=== PATIENT | male | born 1970 | race Caucasian/White ===

== ENCOUNTER → 2017-01-09 | Outpatient (CLI) | payer BC ==
--- NOTE | 2017-01-09 13:02 | DI ---
Indication: ITS.REASON: HYPERCALCEMIA; HYPERPARATHYROIDISM; VIT D DEF; PROCEDURE: US THYROID: Encounter: Initial Comparison: Nuclear medicine parathyroid scan from 01/09/2017 Technique: Grayscale and color Doppler sonographic imaging of the thyroid gland was performed. Findings: Thyroid isthmus is normal measuring 0.2 cm in diameter. The right thyroid lobe shows a probable colloid cyst which is hypoechoic and contains a central coarse calcification measuring 0.5 x 0.3 x 0.7 cm in size. No additional nodules in the right lobe. Left thyroid lobe is homogeneous without focal nodule or mass. Normal Doppler flow to both thyroid lobes. Posterior to the inferior left thyroid lobe is an irregular hypoechoic nodule measuring 1.1 x 0.8 x 0.7 cm in size. This shows internal Doppler flow. Right thyroid lobe measures 4.6 x 1.1 x 1.7 cm. Left lobe measures 4.5 x 1.3 x 1.7 cm. Impression: Left lower parathyroid adenoma. .
--- NOTE | 2017-01-09 13:07 | DI ---
Indication: ITS.REASON: HYPERCALCEMIA; HYPERPARATHYROIDISM; VIT D DEF; PROCEDURE: NM PARATHYROID SCAN: Encounter: Initial Comparison: Neck ultrasound from 01/09/2017 Technique: 21.1 mCi of Tc-99m sestamibi was administered intravenously via the left antecubital fossa. Early and delayed planar and SPECT images were obtained. Findings: Early images demonstrate diffuse radiotracer uptake in both lobes of the thyroid gland. Delayed images demonstrate slight washout of the radiotracer from the thyroid gland with delayed clearance in the left lower parathyroid gland. Impression: Localization of a left lower parathyroid gland adenoma. .
== END ==
LOC: IMA 10:01
PROVIDERS: ATTEND Internal Medicine
DX: D35.1 Benign neoplasm of parathyroid gland (principal); E21.3 Hyperparathyroidism, unspecified; E55.9 Vitamin D deficiency, unspecified
CPT/HCPCS: 76536; 78070; 78803; A9500